=== PATIENT | female | born 1990 | race Hispanic/Latino ===

== ENCOUNTER 2017-03-11 00:17 | Emergency (ER) | payer OTHER ==
[~2017-03-11] VITALS: Ht 162.6 cm; Wt 104.5 kg
[~2017-03-11 00:17] MED LIST: HYDR-4150 PO; IBUP800T28 PO
[2017-03-11 00:43] VITALS: BP 123/86; PULSE 65; RESP 18; O2SAT 100
--- NOTE | 2017-03-11 00:56 | ED.REPORT ---
HPI-Abd Pain F Under 40 Date of Service Mar 11, 2017 ED Provider: Ammon Lawler MD A 26 year old female with a history of kidney stone presents to the ED complaining of left flank pain. The pain has been present for one month, and she has already been seen for this pain. This is accompanied by dysuria and urinary frequency. The pt denies fever, vomiting, productive cough, nausea or diarrhea. She believes that her symptoms are due to a kidney stones, stating that this is the same pain as what she experienced before. Nursing Notes Stated Complaint: LEFT KIDNEY PAIN Chief Complaint: Female Abdominal Pain Nursing Notes Reviewed: Yes Allergies: Coded Allergies: No Known Allergies (Verified Allergy, Unknown, 03/19/15) Scheduled Cefuroxime Axetil (Cefuroxime) 500 Mg Tablet 500 MG PO BID Famotidine (Pepcid) 20 Mg Tablet 20 MG PO BID Scheduled PRN Hydrocodone/Acetaminophen ([place] 5-325 Tablet) 1 Tablet Tablet 2 TABLET PO Q4 PRN PRN For Moderate Pain Ibuprofen (Ibuprofen) 800 Mg Tablet 800 MG PO TID PRN PRN For Pain Naproxen (Naproxen) 500 Mg Tablet.dr 500 MG PO BID PRN PRN For Pain Ondansetron ODT (Ondansetron ODT) 8 Mg Tab.rapdis 8 MG PO QID PRN PRN For Nausea Tramadol (Tramadol) 50 Mg Tablet 100 MG PO Q6H PRN PRN For Pain General Time Seen by : 00:56 Chief Complaint Flank pain left Hx Obtained From: Patient Arrived By: Walk-in Sudden in Onset?: No Symptom Duration: Since onset Recent Healthcare: No recent hospitalization Similar Sx Previous: Yes Past Medical History Past Medical History Kidney stone Past Surgical History Reports: , Cholecystectomy Smoking History Never Smoker Social History Other Social History: Good social support Ambulatory Status Independent Review of Systems Constitutional: Denies: Fever Respiratory: Denies: Non-productive cough, Prod cough, clear, Shortness of breath Cardiovascular: Denies: Chest pain GI: Denies: Abdominal pain, Diarrhea, Nausea, Vomiting Female: Reports: Dysuria, Flank pain, Urinary frequency Complete sys rev & neg: except as marked. Physical Exam Initial Vital Signs Vital Signs (First) Date Time Temp Pulse Resp B/P Pulse Ox O2 Delivery O2 Flow Rate FiO2 03/11/17 00:43 37.0 65 18 123/86 100 Room Air Initial VS: Reviewed General/Constitutional: Awake, Alert Appearance / Presentation: Positive: Obese Respiratory / Chest: Atraumatic, Breath sounds NL, Breath sounds = bilat, No respiratory distress Cardiovascular: Heart rate NL, Regular rhythm, Heart sounds NL Abdomen: Atraumatic, Soft, Non-tender Back: Atraumatic, Full range of motion no flank tenderness to percussion Head / Eyes: Atraumatic, Normocephalic, PERRL, EOMI ENT: Atraumatic, Airway patent, Mucous membranes moist Skin: Atraumatic, Color NL, No rash, Warm, Dry Neurologic: Oriented X3, Speech NL, No motor deficits, No sensory deficits Neck: Atraumatic, Supple, Full range of motion Upper Extremity / MS: Atraumatic, Full range of motion Lower Extremity / Pelvis / MS: Atraumatic, Full range of motion Psychiatric: Affect NL, Mood NL Interpretation & Diagnostics Lab Results Interpretation Result Diagram: 03/11/17 0156 03/11/17 0156 Test 03/11/17 01:20 03/11/17 01:56 Urine Color Yellow (YELLOW) Urine Appearance Hazy (CLEAR,HAZY) Urine pH 6.0 (5.0-8.0) Urine Specific [place] 1.025 (1.003-1.035) Urine Protein Negativemg/dL (NEG,TRACE) Urine Glucose (UA) Negativemg/dL (NEGATIVE) Urine Ketones Negativemg/dL (NEGATIVE) Urine Occult Blood Negative (NEGATIVE) Urine Nitrite Negative (NEGATIVE) Urine Bilirubin Negative (NEGATIVE) Urine Urobilinogen Normalmg/dL (NORMAL) Urine Leukocyte Esterase Small (NEGATIVE) Urine RBC 0-2/hpf (0-2) Urine WBC 11-50/hpf (0-5) Urine Epithelial Cells Many/hpf (NONE-MOD) Urine Crystals None seen (NONE SEEN) Urine Bacteria Moderate/hpf (NONE-FEW) Urine Hyaline Casts None/lpf (NONE) Urine Granular Casts None seen (NONE SEEN) Urine Waxy Casts None seen (NONE SEEN) Urine Red Blood Cell Casts None seen (NONE SEEN) Urine White Blood Cell Casts None seen (NONE SEEN) Urine Mucus Present (None Seen) Urine Trichomonas None seen (NONE SEEN) Urine Yeast None (NONE SEEN) Urinalysis Comment None Urine Culture Reflexed Indicated White Blood Count 9.6th/mm3 (3.8-10.1) Red Blood Count 4.64mil/mm3 (3.90-5.20) Hemoglobin 13.1g/dL (12.0-15.6) Hematocrit 37.9% (35.0-46.0) Mean Corpuscular Volume 81.7fL (81-100) Mean Corpuscular Hemoglobin 28.2pg (27.0-35.0) Mean Corpuscular Hemoglobin Concent 34.6% (32.0-37.0) Red Cell Distribution Width 14.1% (12.3-15.4) Platelet Count 200bil/L (150-400) Neutrophils (%) (Auto) 60.5% (40-74) Lymphocytes (%) (Auto) 28.7% (14-46) Monocytes (%) (Auto) 7.3% (4-12) Eosinophils (%) (Auto) 2.9% (0-5) Basophils (%) (Auto) 0.3% (0-3) Prothrombin Time 11.1sec (8.1-12.5) Prothromb Time International Ratio 1.04ratio Sodium Level 137mEq/L (134-144) Potassium Level 3.9mEq/L (3.5-5.2) Chloride Level 100mEq/L (97-108) Carbon Dioxide Level 21mmol/L (18-29) Blood Urea Nitrogen 11mg/dL (6-20) Creatinine 0.58mg/dL (0.57-1.00) Estimat Glomerular Filtration Rate 180mL/min (>59) Glucose Level 94mg/dL (60-99) Lactic Acid Level 0.6mmol/L (0.4-2.0) Calcium Level 9.2mg/dL (8.5-10.1) Magnesium Level 2.1mg/dL (1.6-2.6) Total Bilirubin 0.2mg/dL (0.0-1.2) Aspartate Amino Transf (AST/SGOT) 18U/L (0-50) Alanine Aminotransferase (ALT/SGPT) 33U/L (0-32) Alkaline Phosphatase 78U/L (25-150) Total Protein 7.9g/dL (6.4-8.4) Albumin 4.2g/dL (3.4-5.0) Lipase 20U/L (13-60) CT Abd / Pelvis Interpretation CONCLUSION: No CT evidence of acute intra-abdominal pathology. Interpretation / Wet Read by: Interpret - Radiologist Re-Eval/Medical Decision Med Decision/Clinical Course Med Decision/Clinical Course: Flank pain on the left similar to kidney stone pain in the past, but with no evidence of kidney stone. White count in the urine, negative CT all point to UTI and pyelonephritis but not stone. Begun with Rocephin and Ceftin. Discharged in stable improved condition. Source of Hx: Old records Re-Evaluation/Progress : Time of Eval: 03:35 Patient Status: Condition improved Re-Evaluation/Progress Note: Pt rechecked, who is resting. The diagnosis and plan for discharge are discussed. The pt understands and agrees with the plan. All questions are addressed at this time. Counseled Regarding: Diagnosis, Lab results, Need for follow-up, When/why to return to ED Discharge & Departure Primary Impression: Urinary tract infection Urinary tract infection type: site unspecified Hematuria presence: without hematuria Qualified Code: N39.0 - Urinary tract infection, site not specified Additional Impression: Pyelonephritis Disposition: Home Discharge Condition All VS Reviewed: Yes Condition: Stable Patient Instructions: Kidney Infection (ED) Additional Instructions: Begin Ceftin twice daily. Naprosyn twice daily. Pepcid twice daily as long as you are on Naprosyn. Brief use of tramadol for additional pain relief. Zofran if needed for nausea, to four times daily. Follow-up with your doctor in the office. Return if any immediate issues. Referrals: [facility] (PCP) Mejia Sexton MD (Family) Scribe Attestation Portions of this note were transcribed by Dustin Ambrose. I, Dr. Lawler personally performed the history, physical exam and medical decision-making; I reviewed and confirmed the accuracy of the information in the transcribed note. copies to: [facility]; Mejia Sexton MD, Christopher W MD Mar 11, 2017 00:56 DUSTIN AMBROSE Mar 11, 2017 01:16
[2017-03-11] MEDS ORDERED: 0.9% Sodium Chloride 1,000 ML IV ONE (01:15)
[2017-03-11] MEDS ORDERED: Ondansetron 2 mg/mL 2 mL Inj IVPUSH ONE (01:15)
[2017-03-11 01:26] LABS: APPEARANCE,URINE HAZY (CLEAR,HAZY); COLOR,URINE YELLOW (YELLOW); OCCULT BLOOD,URINE NEGATIVE (NEGATIVE); UROBILINOGEN,URINE NORMAL (NORMAL)
[2017-03-11 02:15] LABS: BASOPHILS % (AUTO) 0.3 % (0-3); EOSINOPHILS % (AUTO) 2.9 % (0-5); MONOCYTES % (AUTO) 7.3 % (4-12); Mean Corpuscular Hemoglobin 28.2 pg (27.0-35.0); Mean Corpuscular Volume 81.7 fL (81-100); NEUTROPHILS % (AUTO) 60.5 % (40-74); Platelet Count 200 bil/L (150-400)
[2017-03-11 02:31] LABS: INR 1.04 ratio
[2017-03-11 02:36] LABS: Magnesium 2.1 mg/dL (1.6-2.6)
[2017-03-11] MEDS ORDERED: cefTRIAXone Inj 2,000 MG in Dextrose 5% Minibag Plus 50 ML IV ONE (03:30)
[2017-03-11] MEDS ORDERED: FAMO20T PO (03:35)
[2017-03-11] MEDS ORDERED: CEFU500T61 PO (03:35)
[2017-03-11] MEDS ORDERED: NAPR500T5 PO (03:35)
[2017-03-11] MEDS ORDERED: ONDA8TAB10 PO (03:35)
[2017-03-11] MEDS ORDERED: TRAM50TA2 PO (03:35)
[2017-03-11 04:43] VITALS: BP 115/74; PULSE 75; RESP 16; O2SAT 99
--- NOTE | 2017-03-11 11:14 | DRSVH ---
PROCEDURE: CT ABDOMEN AND PELVIS WITH CONTRAST ([id number]) INDICATIONS: LEFT FLANK PAIN, PRIOR KIDNEY STONE TECHNIQUE: After the administration of intravenous contrast, 5 mm thick sections acquired from the diaphragm to the symphysis. 5 mm coronal and sagittal reformats were acquired. For radiation dose reduction, the following was used: automated exposure control, adjustment of mA and/or kV according to patient siz e. COMPARISON: None. FINDINGS: Image quality: Excellent. ABDOMEN: Lung bases: Lung bases are clear. Heart size is normal. Solid organs: Liver and spleen are normal in size and enhancement. Gallbladder has been removed. B iliary system is non dilated. Pancreas enhances normally. No adrenal nodules. Kidneys demonstrate normal size and enhancement, without hydronephrosis. Peritoneum and bowel: Bowel loops demonstrate normal wall thickness and caliber. No free fluid or a ir. Appendix is unremarkable. Nodes and vessels: No retroperitoneal or mesenteric adenopathy by size criteria. Aorta and inferior vena cava are normal in size. Miscellaneous: No ventral hernias. PELVIS: Genitourinary: Bladder wall thickness is normal. Miscellaneous: No inguinal hernias or adenopathy. Bones: No suspicious bony lesions. No vertebral body compression fractures. IMPRESSION: 1. No visualized renal or ureteral stone. No bladder calculi. Dictated by: Mary Mitchell M.D. on 03/11/2017 at 11:08 Approved by: Mary Mitchell M.D. on 03/11/2017 at 11:13
== END 2017-03-11 04:35 | disposition home or self-care (01) ==
LOC: SED 00:17
DX: N39.0 Urinary tract infection, site not specified (principal); N12 Tubulo-interstitial nephritis, not specified as acute or chronic; Z87.442 Personal history of urinary calculi; Z90.49 Acquired absence of other specified parts of digestive tract
CPT/HCPCS: 36415; 74177; 80053; 81000; 81025; 83605; 83690; 83735; 85025; 85610; 87086; 87088; 96361; 96365; 96375; 99285; J0696; J1885; J2270; J2405; J7030; Q9967